=== PATIENT | female | born 1940 | race Caucasian/White ===

== ENCOUNTER → 2016-06-09 | Outpatient (CLI) | payer MEDICARE, BC ==
[~2016-06-09] MED LIST: AMAR2TAB PO; ASPI325T24 PO; ATEN1TAB73 PO; CINNAMON PO; DOCU1CAP32 PO; FISH1000 PO; FOLI1TAB PO; FURO1TAB93 PO; KLOR20TA6 PO; LANO0.2510 PO; MAGN400T PO; RAMI2.5C29 PO; ROSU10 PO; SITA100 PO; VITA100017 PO
[2016-06-09 11:28] LABS: ANION GAP 6 MEQ/L (5-15); BICARBONATE 28.8 MEQ/L (21.0-32.0); BLOOD UREA NITROGEN 22 MG/DL (7-18); CHLORIDE 106 MEQ/L (98-107); GLOMERULAR FILTRATION RATE 67 ML/MIN (>89); GLUCOSE,FASTING 141 MG/DL (74-99); POTASSIUM 5.1 MEQ/L (3.5-5.1); SODIUM (NA) 141 MEQ/L (136-145)
[2016-06-09 15:34] LABS: HEMOGLOBIN A1a 1.1 %; HEMOGLOBIN A1b 1.8 %; HEMOGLOBIN Ao 84.4 %; HEMOGLOBIN LA1C 2.3 %
== END ==
LOC: PLAB 08:31
DX: E11.65 Type 2 diabetes mellitus with hyperglycemia (principal)
CPT/HCPCS: 36415; 80048; 83036

== ENCOUNTER → 2016-10-22 | Outpatient (CLI) | payer MEDICARE, BC ==
[2016-10-22 10:03] LABS: ANION GAP 7 MEQ/L (5-15); AST (GOT) 25 U/L (15-37); BICARBONATE 28.4 MEQ/L (21.0-32.0); BLOOD UREA NITROGEN 30 MG/DL (7-18); CHLORIDE 105 MEQ/L (98-107); GLOMERULAR FILTRATION RATE 74 ML/MIN (>89); GLUCOSE,FASTING 115 MG/DL (74-99); SODIUM (NA) 140 MEQ/L (136-145)
[2016-10-22 10:07] LABS: ALKALINE PHOSPHATASE 60 U/L (45-117); ALT (GPT) 38 U/L (10-53); TOTAL BILIRUBIN ADULT 0.5 MG/DL (0.2-1.0)
[2016-10-22 10:08] LABS: CREATINE KINASE 76 U/L (26-192)
[2016-10-23 11:21] LABS: HDL CHOLESTEROL 42.9 MG/DL (40.0-60.0)
== END ==
LOC: PLAB 06:55
PROVIDERS: ATTEND Internal Medicine Interventional Cardiology
DX: R94.39 Abnormal result of other cardiovascular function study (principal); I65.29 Occlusion and stenosis of unspecified carotid artery; I25.10 Atherosclerotic heart disease of native coronary artery without angina pectoris; I10 Essential (primary) hypertension; I42.1 Obstructive hypertrophic cardiomyopathy; E78.2 Mixed hyperlipidemia; I47.1 Supraventricular tachycardia; I27.0 Primary pulmonary hypertension; Z79.899 Other long term (current) drug therapy; Z95.2 Presence of prosthetic heart valve; Z68.30 Body mass index [BMI] 30.0-30.9, adult
CPT/HCPCS: 36415; 80053; 80061; 82248; 82550

== ENCOUNTER → 2017-05-25 | Outpatient (CLI) | payer MEDICARE, BC ==
[2017-05-25 10:37] LABS: ALBUMIN 3.7 GM/DL (3.4-5.0)
[2017-05-25 10:41] LABS: CHOLESTEROL/ HDL RATIO 2.52 RATIO; DIRECT BILIRUBIN ADULT 0.1 MG/DL (0.0-0.2); INDIRECT BILIRUBIN 0.2 MG/DL (0.0-0.8); TOTAL BILIRUBIN ADULT 0.3 MG/DL (0.2-1.0); TOTAL PROTEIN 6.9 GM/DL (6.4-8.2)
== END ==
LOC: PLAB 07:26
PROVIDERS: ATTEND Internal Medicine Interventional Cardiology
DX: I25.10 Atherosclerotic heart disease of native coronary artery without angina pectoris (principal); I10 Essential (primary) hypertension; E78.2 Mixed hyperlipidemia; Z79.899 Other long term (current) drug therapy
CPT/HCPCS: 36415; 80061; 80076; 82550